=== PATIENT | female | born 1990 | race Caucasian/White ===

== ENCOUNTER 2018-02-20 22:00 | Inpatient (IN) | payer MEDICAID, OTHER, SELFPAY ==
[2018-02-21] MEDS ORDERED: Methylergonovine 0.2 MG/ML VIAL IM PRN (01:40)
[2018-02-21] MEDS ORDERED: Butorphanol Tartrate 1 MG/ML VIAL SLOW IVP PRN (01:40)
[2018-02-21] MEDS ORDERED: NS / Oxytocin 40 units/1000ml 1,000 ML IV PRN (01:40)
[2018-02-21] MEDS ORDERED: Ibuprofen 800 MG TAB PO PRN (01:40)
[2018-02-21] MEDS ORDERED: HYDROcodone/Acetaminophen 5/325 mg Tablet PO PRN ×3 (01:40→12:04)
[2018-02-21] MEDS ORDERED: NS w/ Oxytocin 10 units 500 ML IV SCH ×2 (01:40→02:00)
[2018-02-21] MEDS ORDERED: Misoprostol 200 MCG TAB PR PRN (01:40)
[2018-02-21] MEDS ORDERED: Ondansetron PF 4 MG/2 ML Vial IVP PRN ×3 (01:40→12:04)
[2018-02-21] MEDS ORDERED: Diphenoxylate HCl/Atropine Tablet PO PRN (01:40)
[2018-02-21] MEDS ORDERED: Lidocaine 1% (PF) 30 ML VIAL SC PRN (01:40)
[2018-02-21 02:10] VITALS: BMI 36.1
[2018-02-21] MEDS: Lactated Ringer's 1,000 ML IV SCH ×2 (02:40→09:12)
[2018-02-21] MEDS: Misoprostol 100 MCG TAB VAG SCH ×2 (02:40→07:20)
[2018-02-21 02:45] LABS: Hemoglobin 12.1 g/dL (12.0-16.0); Mean Corpuscular HGB CONC 34.1 g/dL (32.0-36.0); Mean Corpuscular Hemoglobin 32.8 pg (27.0-31.0); Mean Corpuscular Volume 96.2 fL (78.0-98.0); Platelet Count 235 thou/uL (130-400); RBC Distribution Width 11.8 % (11.5-14.5); Red Blood Cell (RBC) Count 3.69 mill/uL (4.20-5.40); White Blood Cell (WBC) Count 7.8 thou/uL (4.8-10.8)
[2018-02-21 03:02] LABS: ALT (SGPT) 97 U/L (8-55); AST (SGOT) 122 U/L (5-34); Albumin 3.3 g/dL (3.5-5.0); Alkaline Phosphatase 195 U/L (40-150); Anion Gap 12 mmol/L (10-20); BUN (Urea Nitrogen) 8 mg/dL (7.0-18.7); Bilirubin, Total 0.3 mg/dL (0.2-1.2); Calc. Creatinine Clearance 195 mL/min (70-130); Carbon Dioxide 21 mmol/L (22-29); Chloride 109 mmol/L (98-107); Estimated GFR-MDRD Greater than 90; Globulin 3.4 g/dL (2.4-3.5); Glucose 87 mg/dL (70-105); Potassium 3.7 mmol/L (3.5-5.1); Protein, Total 6.7 g/dL (6.0-8.3); Sodium 138 mmol/L (136-145)
[2018-02-21 03:20] LABS: HBSAg Index 0.19 S/CO (0-0.99); Hep B Surf Ag Non-Reactive S/CO (NonReactive)
[2018-02-21 04:11] LABS: Syphilis Antibody Nonreactive (Nonreactive); Syphilis Antibody Index 0.03 S/CO (<1.00 Non-Reactive)
[2018-02-21] MEDS ORDERED: Fentanyl 4 mcg/Bup 0.1% Cadd 100 ML ONE (08:53)
[2018-02-21] MEDS ORDERED: Eucerin (Mineral Oil/Petrolatum,White) 30 gm Jar TOP PRN (09:49)
[2018-02-21] MEDS ORDERED: ePHEDrine/0.9% NaCl/PF SYRINGE 50 mg/10 ml SLOW IVP PRN (09:49)
[2018-02-21] MEDS ORDERED: Naloxone HCl 0.4 mg/ml Vial IVP PRN ×2 (09:49)
[2018-02-21] MEDS ORDERED: Promethazine HCl 25 MG/ML VIAL IM PRN (09:49)
[2018-02-21] MEDS ORDERED: Acetaminophen 325 MG TAB PO PRN (09:49)
[2018-02-21] MEDS ORDERED: Lactated Ringer's 500 ML IV PRN (09:49)
[2018-02-21] MEDS ORDERED: diphenhydrAMINE 50 MG/ML VIAL IVP PRN (09:49)
[2018-02-21] MEDS ORDERED: Fentanyl 4 mcg/Bupivacaine 0.1% Cassette 100 ML EPIDURAL SCH (10:00)
[2018-02-21] MEDS ORDERED: Communication Order-Pharmacy FS SCH (10:00)
[2018-02-21] MEDS ORDERED: NS / Oxytocin 40 units/1000ml 1,000 ML ONE (10:37)
[2018-02-21] MEDS ORDERED: Lidocaine 1% (PF) 30 ML VIAL ONE (10:37)
[2018-02-21] MEDS: NS / Oxytocin 40 units/1000ml 1,000 ML IV SCH ×2 (11:08→13:09)
[2018-02-21] MEDS ORDERED: Lanolin Ointment 7 GM TUBE TOP PRN (12:04)
[2018-02-21] MEDS ORDERED: Milk Of Magnesia 30 ML UDCUP PO PRN (12:04)
[2018-02-21] MEDS ORDERED: Bisacodyl 10 MG SUPP PR PRN (12:04)
[2018-02-21] MEDS ORDERED: diphenhydrAMINE 25 MG CAP PO PRN (12:04)
[2018-02-21] MEDS ORDERED: Benzocaine/Menthol 20-0.5% 60 ML CAN TOP PRN (12:04)
[2018-02-21] MEDS: Ibuprofen 800 MG TAB PO SCH ×2 (14:04→21:54)
[2018-02-21] MEDS ORDERED: Bupivacaine 0.25% 10 ML VIAL ONE (14:51)
[2018-02-21] MEDS: Ferrous Sulfate 325 MG TAB PO SCH (16:13)
[2018-02-21] MEDS: Docusate Calcium (SURFAK) 240 MG CAP PO SCH (21:54)
[2018-02-22 05:45] LABS: Hemoglobin 11.6 g/dL (12.0-16.0); Mean Corpuscular HGB CONC 33.3 g/dL (32.0-36.0); Mean Corpuscular Hemoglobin 32.2 pg (27.0-31.0); Mean Corpuscular Volume 96.7 fL (78.0-98.0); Mean Platelet Volume 9.2 fL (7.4-10.4); Platelet Count 204 thou/uL (130-400); RBC Distribution Width 11.8 % (11.5-14.5); Red Blood Cell (RBC) Count 3.61 mill/uL (4.20-5.40); White Blood Cell (WBC) Count 9.5 thou/uL (4.8-10.8)
[2018-02-22] MEDS: Ibuprofen 800 MG TAB PO SCH (06:16)
[2018-02-22 07:29] VITALS: BP 99/58
[2018-02-22] MEDS: Ferrous Sulfate 325 MG TAB PO SCH (08:00)
[2018-02-22] MEDS: Docusate Calcium (SURFAK) 240 MG CAP PO SCH (08:00)
[2018-02-22] MEDS ORDERED: Prenatal Vitamin 1 TAB PO SCH (09:00)
[2018-02-22 11:15] VITALS: TEMP 97.9
== END 2018-02-22 16:15 | disposition home or self-care (01) | DRG 807 ==
LOC: L&D 02-21 01:17 → 3SE 02-21 14:05
PROVIDERS: ADMIT Family Medicine; ATTEND Family Medicine
PROC: 10E0XZZ Delivery of Products of Conception, External Approach (ICD-10-PCS; principal; 2018-02-21)
DX: O99.62 Diseases of the digestive system complicating childbirth (principal); Z37.0 Single live birth; O69.81X0 Labor and delivery complicated by cord around neck, without compression, not applicable or unspecified; Z3A.38 38 weeks gestation of pregnancy; K80.20 Calculus of gallbladder without cholecystitis without obstruction
CPT/HCPCS: 36415; 80053; 85027; 86780; 86850; 86900; 86901; 87340; J2001; S0020

== ENCOUNTER 2022-03-01 22:14 | Emergency (ER) | payer MEDICAID, SELFPAY ==
[2022-03-01 22:47] LABS: Bacteria/HPF None Seen HPF (None Seen); Bilirubin Negative (Negative); Blood, Urine Negative (Negative); Clarity Clear (Clear); Glucose, Urine (Dipstick) Normal (Negative); Ketone, Urine Negative (Negative); Leukocyte 25 Leu/uL (Negative); Nitrite Negative (Negative); Protein, Urine (Dipstick) Negative (Neg-Trace); RBC/HPF 0-3 HPF (0-3); Specific Gravity, Urine 1.016 (1.002-1.036); Urobilinogen Normal mg/dL (Less than 2); WBC/HPF 0-3 HPF (0-3); pH, Urine 6.5 (5.0-9.0)
[2022-03-01 22:59] LABS: #Basophils 0.1 thou/uL (0.0-0.2); #Eosinphils 0.1 thou/uL (0.0-0.7); #Lymphocytes 3.1 thou/uL (1.20-3.40); #Monocytes 0.8 thou/uL (0.11-0.59); #Neutrophils 5.8 thou/uL (1.40-6.50); %Basophils 0.5 % (0.0-1.0); %Eosinophils 1.3 % (0.0-10.0); %Lymphocytes 31.4 % (21.0-51.0); %Monocytes 8.5 % (0.0-10.0); %Neutrophils 58.3 % (42.0-75.0); Hemoglobin 12.5 g/dL (12.0-16.0); Mean Corpuscular HGB CONC 33.4 g/dL (32.0-36.0); Mean Corpuscular Hemoglobin 32.5 pg (27.0-31.0); Mean Corpuscular Volume 97.4 fl (78.0-98.0); Mean Platelet Volume 8.5 fL (7.4-10.4); Platelet Count 226 10x3/uL (130-400); RBC Distribution Width 11.6 % (11.5-14.5); Red Blood Cell (RBC) Count 3.86 mill/uL (4.20-5.40)
[2022-03-01 23:19] LABS: ALT (SGPT) 13 U/L (8-55); AST (SGOT) 20 U/L (5-34); Albumin 4.1 g/dL (3.5-5.0); Alkaline Phosphatase 76 U/L (40-110); Anion Gap 12 mmol/L (10-20); BUN (Urea Nitrogen) 15 mg/dL (7.0-18.7); Bilirubin, Total 0.5 mg/dL (0.2-1.2); Calc. Creatinine Clearance 0 mL/min (70-130); Calcium 9.1 mg/dL (7.8-10.44); Carbon Dioxide 25 mmol/L (22-29); Chloride 105 mmol/L (98-107); Estimated GFR 85; Globulin 3.1 g/dL (2.4-3.5); Glucose 84 mg/dL (70-105); Potassium 3.8 mmol/L (3.5-5.1); Protein, Total 7.2 g/dL (6.0-8.3); Sodium 138 mmol/L (136-145)
[2022-03-01 23:31] LABS: BHCG - Serum Negative (NEGATIVE); Pregs Control Background? CLEAR/WHITE (CLR/WHITE); Pregs Control Bar Appear? YES (CONTROL BAR)
[2022-03-01] MEDS ORDERED: Ondansetron PF 4 MG/2 ML Vial ONE (23:32)
[2022-03-01] MEDS ORDERED: Morphine 4 MG/ML VIAL ONE (23:32)
== END 2022-03-02 02:32 | disposition home or self-care (01) ==
LOC: ERS 22:14
DX: R10.13 Epigastric pain (principal)
CPT/HCPCS: 36415; 71045; 80053; 81003; 81015; 83690; 84703; 85025; 96374; 96375; J2270; J2405

== ENCOUNTER 2022-11-09 09:00 | Outpatient (CLI) | payer OTHER | END 2022-11-09 09:01 | disposition home or self-care (01) | LOC: BICULT 09:00 | PROVIDERS: ATTEND Family Medicine | DX: Z34.82 Encounter for supervision of other normal pregnancy, second trimester (principal); Z3A.20 20 weeks gestation of pregnancy | CPT/HCPCS: 76805 ==